=== PATIENT | male | born 1950 | race Caucasian/White ===

== ENCOUNTER 2024-08-21 11:40 | Outpatient (CLI) | payer MEDICARE, SELFPAY ==
--- NOTE | ~2024-08-21 | PE_ITS ---
EXAMINATION: PET_PETPSMAST_PT DATE: 08/21/2024 14:17 INDICATION: Prostate cancer. TECHNIQUE: 5.078 mCi of Ga-68 gozetotide was administered intravenously. Low dose computed tomography (CT) images were acquired from the base of the brain to the proximal thighs for attenuation correcti on and anatomic localization. Automated exposure control was employed. Dose-length product (DLP) was 1282 mGy-cm. Positron emission tomography (PET) images were acquired in the same distribution. COMPARISON: None FINDINGS: Head/neck: There are no pathologically enlarged lymph nodes. Chest: There is no pneumonia or pleural effusion. The heart size is normal. There are coronary artery calcifications. No pericardial effusion. There is mild bilateral gynecomastia. There are suture anch ors in right humeral head. Abdomen/pelvis/proximal thighs: There is a 10 mm cyst in the liver. The gallbladder, spleen, pancreas , adrenal glands, and right kidney are normal. There is a 2 mm stone in left kidney. There is a 14 mm cyst in left kidney. The prostate is moderately enlarged. There is activity in the prostate with max imum SUV of 4.0. There is a right inguinal hernia containing fat. There are no pathologically enlarge d lymph nodes. There is no free intraperitoneal fluid. There is no osseous malignancy. IMPRESSION: 1. Moderately enlarged prostate with maximum SUV of 4.0. No evidence of metastatic disease. Reviewed, dictated and finalized at location A. H TECHNICIAN IMPRESSION: 1. Moderately enlarged prostate with maximum SUV of 4.0. No evidence of metasta tic disease.
== END 2024-08-21 11:41 | disposition home or self-care (01) ==
PROVIDERS: PCP Family Medicine; Visit Provider Urology
DX: N40.0 Benign prostatic hyperplasia without lower urinary tract symptoms (principal); R97.20 Elevated prostate specific antigen [PSA]
CPT/HCPCS: 78815; A9596